=== PATIENT | female | born 1960 | race Two or more races ===

== ENCOUNTER 2020-11-29 08:30 | Day surgery (SDC) | payer OTHER ==
[~2020-11-29 08:30] MED LIST: HUMIRA40 MG/0.2; HYDROCHLOROTH12.5 MG PO; PEPCID40 MG PO; PREVACID30 MG PO; TYLENOL ARTHRI650 MG PO; VERELAN240 MG PO
[2020-11-29] MEDS ORDERED: IBU600 MG PO (11:25)
== END 2020-11-29 16:00 | disposition home or self-care (01) ==
LOC: CIR.AMB 08:30
PROVIDERS: ATTEND Obstetrics & Gynecology Gynecology
DX: N84.0 Polyp of corpus uteri (principal); Z20.822 Contact with and (suspected) exposure to COVID-19